=== PATIENT | female | born 1975 | race Caucasian/White ===

== ENCOUNTER 2020-05-14 14:18 | Emergency (ER) | payer OTHER ==
--- NOTE | 2020-05-14 14:31 | PDOC ---
Rapid Medical Evaluation Time Seen by Provider: 05/14/20 14:29 Medical Evaluation: 05/14/20 14:29 I have performed a brief in-person examination on this patient. CC: left pelvic pain x2 days PE: Abd SNTND. No CVAT. Industrial Mechanic- deferred Orders: urine Patient will proceed to ED for further evaluation. Discharge Disposition - Diagnosis Adnexal pain - Referrals - Patient Instructions - Post Discharge Activity
[2020-05-14 14:36] VITALS: BP 112/77; PULSE 87; TEMP 98.6; BMI 31.3
[2020-05-14 15:33] LABS: HCG,QUALITATIVE URINE Negative
[2020-05-14 15:34] LABS: EPI CELLS >36 /uL (0-25.1); HYALINE CASTS 16 /uL (0-3.1); PH,URINE 6.5 (5.0-8.0); URINE APPEARANCE TURBID; URINE BACTERIA 3179 /uL (0-1359); URINE BILIRUBIN 2+ (NEGATIVE); URINE COLOR DK YELLOW; URINE GLUCOSE (UA) NEGATIVE (NEGATIVE); URINE KETONE 2+ (NEGATIVE); URINE LEUK ESTERASE 3+ (NEGATIVE); URINE NITRITE POSITIVE (NEGATIVE); URINE PROTEIN 2+ (NEGATIVE); URINE WBC 6950 /uL (0-25.8)
[2020-05-14 15:55] LABS: URINE RBC 256.3 /uL (0-23.9)
[2020-05-14 15:56] LABS: YEAST NONE SEEN (NEGATIVE)
[2020-05-14] MEDS ORDERED: KETOROLAC TROMETHAMINE 60 MG/2 ML VIAL IM ONE (16:07)
--- NOTE | 2020-05-14 16:13 | PDOC ---
History of Present Illness - General History Source: Patient Exam Limitations: No Limitations <Sun Klein - Last Filed: 05/14/20 16:07> <Pamela Quinones - Last Filed: 05/15/20 09:48> - General Chief Complaint: Urinary Problem Stated Complaint: SICK Time Seen by Provider: 05/14/20 14:29 Past History - Travel History Traveled outside of the country in the last 30 days: No Close contact w/someone who was outside of country & ill: No - Medical History COPD: No - Reproductive History Is Patient Now?: No - Psycho-Social/Smoking History Smoking History: Never smoked Have you smoked in the past 12 months: No - Substance Abuse Hx (Audit-C & DAST Scrn) How often the patient has a drink containing alcohol: Never Score: In Men: 4 or > Positive; In Women: 3 or > Positive: 0 Screen Result (Pos requires Nsg. Audit-10AR): Negative In the last yr the pt used illegal drug/Rx for NonMed reason: No Score: Yes response is considered Positive: 0 Screen Result (Positive result requires Nsg. DAST-10): Negative <Sun Klein - Last Filed: 05/14/20 16:07> <Pamela Quinones - Last Filed: 05/15/20 09:48> - Medical History Allergies/Adverse Reactions: Allergies Allergy/AdvReac Type Severity Reaction Status Date / Time mushroom Allergy Intermediate Difficulty Verified 05/14/20 14:32 Breathing contrast dye Allergy Intermediate Difficulty Uncoded 05/14/20 14:32 Breathing Home Medications: Ambulatory Orders Cephalexin Monohydrate [Keflex -] 500 mg PO BID #14 capsule 05/14/20 Ibuprofen 600 mg PO Q6H #30 tablet 05/14/20 Phenazopyridine HCl [Pyridium -] 100 mg PO TID #9 tablet 05/14/20 Review of Systems - Review of Systems Able to Perform ROS?: Yes Comments:: 05/14/20 16:09 CONSTITUTIONAL: Absent: fever, chills, diaphoresis, generalized weakness, malaise, loss of appetite HEENT: Absent: rhinorrhea, nasal congestion, throat pain, throat swelling, difficulty swallowing, mouth swelling, ear pain, eye pain, visual Changes CARDIOVASCULAR: Absent: chest pain, loss of consciousness, palpitations, irregular heart rate, peripheral edema RESPIRATORY: Absent: cough, shortness of breath, dyspnea with exertion, orthopnea, wheezing, stridor, hemoptysis GASTROINTESTINAL: Present: lower abdominal pain Absent: abdominal distension, nausea, vomiting, diarrhea, constipation, melena, hematochezia GENITOURINARY: Present: Dysuria, frequency, urgency, hesitancy Absent: hematuria, flank pain, genital pain MUSCULOSKELETAL: Absent: myalgia, arthralgia, joint swelling SKIN: Absent: rash, itching, pallor HEMATOLOGIC/IMMUNOLOGIC: Absent: easy bleeding, easy bruising, lymphadenopathy, frequent infections ENDOCRINE: Absent: unexplained weight gain, unexplained weight loss, heat intolerance, cold intolerance NEUROLOGIC: Absent: headache, focal weakness or paresthesias, dizziness, unsteady gait, seizure, mental status changes, bladder or bowel incontinence PSYCHIATRIC: Absent: anxiety, depression, suicidal or homicidal ideation, hallucinations. Is the patient limited Wallisian proficient: No <Sun Klein - Last Filed: 05/14/20 16:07> *Physical Exam - Vital Signs Last Vital Signs Temp Pulse Resp BP Pulse Ox 98.6 F 87 18 112/77 96 05/14/20 14:32 05/14/20 14:32 05/14/20 14:32 05/14/20 14:32 05/14/20 14:32 - Physical Exam 05/14/20 16:10 GENERAL: Well developed, well nourished. Awake and alert. No acute distress. HEENT: Normocephalic, atraumatic. PERRLA, EOMI. No conjunctival pallor. Sclera are non- icteric. Moist mucous membranes. NECK: Supple. Full ROM. No lymphadenopathy. CARDIOVASCULAR: Regular rate and rhythm. No murmurs, rubs, or gallops. Distal pulses are 2+ and symmetric. PULMONARY: No evidence of respiratory distress. Lungs clear to auscultation bilaterally. No wheezing, rales or rhonchi. ABDOMINAL: TTP of the suprapubic area, L labial area. Soft. Non-distended. No rebound or guarding. Normoactive bowel sounds. MUSCULOSKELETAL Normal range of motion at all joints. No bony deformities or tenderness. No CVA tenderness. EXTREMITIES: No cyanosis. No clubbing. No edema. No calf tenderness. SKIN: Warm and dry. Normal capillary refill. No rashes. No jaundice. NEUROLOGICAL: Alert, awake, appropriate. Cranial nerves 2-12 intact. No deficits to light touch and temperature in face, upper extremities and lower extremities. No motor deficits in the in face, upper extremities and lower extremities. Normoreflexic in the upper and lower extremities. Normal speech. Toes are down-going bilaterally. Gait is normal without ataxia. PSYCHIATRIC: Cooperative. Good eye contact. Appropriate mood and affect. <Sun Klein - Last Filed: 05/14/20 16:07> - Vital Signs Last Vital Signs Temp Pulse Resp BP Pulse Ox 98.6 F 87 18 112/77 96 05/14/20 14:32 05/14/20 14:32 05/14/20 14:32 05/14/20 14:32 05/14/20 14:32 <Pamela Quinones - Last Filed: 05/15/20 09:48> ED Treatment Course - ADDITIONAL ORDERS Additional order review: Laboratory Results 05/14/20 14:55 Urine Color Dk yellow Urine Appearance Turbid Urine pH 6.5 Ur Specific Lohn 1.026 Urine Protein 2+ H Urine Glucose (UA) Negative Urine Ketones 2+ H Urine Blood Trace Urine Nitrite Positive H Urine Bilirubin 2+ H Urine Urobilinogen 1.0 Ur Leukocyte Esterase 3+ H Urine WBC (Auto) 6950 Urine RBC (Auto) 256.3 Urine Casts (Auto) 16 U Pathogenic Cast Auto None seen U Epithel Cells (Auto) >36 Urine Bacteria (Auto) 3179 Urine Yeast (Auto) None seen Urine HCG, Qual Negative <Sun Klein - Last Filed: 05/14/20 16:07> - ADDITIONAL ORDERS Additional order review: 05/14/20 14:55 Urine Culture - Preliminary Urine - Urine Clean Catch Staphylococcus Coagulase Neg - Medications Given in the ED: ED Medications Discontinued Medications Generic Name Dose Route Start Last Admin Trade Name Freq PRN Reason Stop Dose Admin Ketorolac Tromethamine 30 mg 05/14/20 16:07 05/14/20 16:24 Toradol Injection - IM 05/14/20 16:08 30 mg ONCE ONE Administration <Pamela Quinones - Last Filed: 05/15/20 09:48> Medical Decision Making - Medical Decision Making 05/14/20 16:12 Patient is a 44-year-old female with no past medical history, presents to the ER today for 3 days of lower abdominal pain, frequency, hesitancy, urgency and dysuria. She states that she also has some pain over her left labia that is very tender to touch. Denies fevers, chills, nausea, vomiting, diarrhea, vaginal discharge, new sexual partners. A/P: UTI On exam patient has suprapubic tenderness. UA ordered from [facility] with nitrite positive, leukoesterase 3+ with thousands of bacteria We will treat as a UTI with Keflex, Pyridium and ibuprofen Discharge home to follow-up with her primary care doctor I discussed the physical exam findings, ancillary test results and final diagnoses with the patient. I answered all of the patient's questions. The patient was satisfied with the care received and felt comfortable with the discharge plan and treatment plan. The Patient agrees to follow up with the primary care physician/specialist within 24-72 hours. Return precautions were given. <Sun Klein - Last Filed: 05/14/20 16:07> - Medical Decision Making I reviewed the case with the mid-level practitioner and agree with the mid-level practitioner's assessment, diagnosis and disposition. <Pamela Quinones - Last Filed: 05/15/20 09:48> Discharge - Discharge Information Problems reviewed: Yes - Admission No <Sun Klein - Last Filed: 05/14/20 16:07> <Pamela Quinones - Last Filed: 05/15/20 09:48> - Discharge Information Clinical Impression/Diagnosis: UTI (urinary tract infection) Qualifiers: Urinary tract infection type: acute cystitis Hematuria presence: with hematuria Qualified Code(s): N30.01 - Acute cystitis with hematuria Condition: Stable Disposition: HOME - Additional Discharge Information Prescriptions: Ibuprofen 600 mg PO Q6H #30 tablet Cephalexin Monohydrate [Keflex -] 500 mg PO BID #14 capsule Phenazopyridine HCl [Pyridium -] 100 mg PO TID #9 tablet - Follow up/Referral Referrals: Taisha Stone MD [Primary Care Provider] - - Patient Discharge Instructions Patient Printed Discharge Instructions: DI for Urinary Tract Infection (UTI) Additional Instructions: You have a urinary tract infection. This caused by bacteria. Please drink plenty of fluids. Take your antibiotics as prescribed. Finish the entire dose even if you feel better. You may take Tylenol or Motrin as needed for pain Please follow up with your primary care doctor this week. Return to the emergency department if you have fevers, chills, nausea, vomiting, back pain, or have any changes in your symptoms. - Post Discharge Activity
[2020-05-14] MEDS ORDERED: KETOROLAC TROMETHAMINE 30 MG/1 ML VIAL ONE (16:16)
== END 2020-05-14 16:47 | disposition home or self-care (01) ==
LOC: JER 14:18
PROC: 3E0233Z Introduction of Anti-inflammatory into Muscle, Percutaneous Approach (ICD-10-PCS; principal; 2020-05-14)
DX: N30.01 Acute cystitis with hematuria (principal)
CPT/HCPCS: 81003; 84703; 87086; 87186; 99284-25